=== PATIENT | male | born 1955 | race Caucasian/White ===

== ENCOUNTER → 2023-12-14 09:13 | Outpatient (REF) | payer MEDICARE, OTHER, SELFPAY | LOC: SDSPAT 09:13 | PROVIDERS: ATTENDING PHYSICIAN Surgery; FAMILY PHYSICIAN Family Medicine | DX: K40.90 Unilateral inguinal hernia, without obstruction or gangrene, not specified as recurrent (principal) | CPT/HCPCS: 36415; 93005 ==

== ENCOUNTER 2023-12-24 06:04 | Day surgery (SDC) | payer MEDICARE, OTHER, SELFPAY ==
[2023-12-14 09:29] VITALS: BMI 27.4
[2023-12-24] VITALS (7 sets, daily range): BP systolic 99–142; BP diastolic 72–85; BMI 27.4
[2023-12-24] MEDS: VANCOCIN 300 ML IV (06:40)
[2023-12-24] MEDS: TYLENOL 1000 MG PO (06:40)
[2023-12-24] MEDS: NORMOSOL-R 1000 IV (06:40)
[2023-12-24] MEDS: VANCOCIN 300 MG IV (06:40)
--- NOTE | 2023-12-24 07:35 | W.SUR.PREOP ---
Pre-Operative Surgical Note
-
I have examined this patient prior to the performance of the scheduled procedure.
The patient's condition is unchanged from the time of the current History and
Physical and the patient is able to undergo the scheduled procedure.
--- NOTE | 2023-12-24 09:19 | W.IMMPOSTOP ---
Surgical Immed Post Op Note
-
Primary Surgeon: Jeevan Shin MD
Assisting Surgeon: None
Pre-op Diagnosis: Right inguinal hernia
Post-op Diagnosis: Same
Procedure Performed: Robotic right inguinal hernia repair with mesh
Anesthesia Type: General
Specimen / Cultures: Right cord lipoma
Estimated Blood Loss: 3 cc
Complications: None
Operative Findings: No left inguinal hernia noted. Indirect right inguinal hernia identified with omentum. Cord lipoma resected. Floor reinforced with large right Bard 3D max mid weight mesh.
POST OP PLAN:
Will discharge home after voiding.
--- NOTE | 2023-12-24 09:21 | OR.RPT ---
Operative Report
Operative Report
Patient Name: Giacomo Medina
: 1955
Date of Operation: 12/24/2023
Preoperative Diagnosis: Reducible Inguinal hernia, right
Postoperative Diagnosis: Same
Procedure(s):
Robotic Inguinal Hernia Repair with mesh, right (JASKARAN approach)
Surgeon(s):
Dr. Shin
Social Scientist(s):
YUDITH Hamilton
Anesthesia: General
Estimated Blood Loss: 3 cc
Urine Output: None
Drains/Lines/Implants: Large 3D Max Bard mid weight mesh
Specimens: Right cord lipoma
Indication for surgery: The patient has a history of groin pain and noted on exam to have a right inguinal Hernia. He did also endorse left inguinal pain but no hernia noted on exam. Following review of therapeutic options they has elected to
undergo a minimally invasive repair.
Findings at the time of surgery:
No left inguinal hernia noted. Patient had a right indirect inguinal hernia containing some omentum that was reduced. No direct or femoral components. There was a cord lipoma that was resected.
Details of the operation:
The patient was brought to the Operating Room and placed in the supine position with the arms tucked. IV antibiotics were infused and Venodyne stockings placed. Following uneventful induction of general endotracheal anesthesia, an orogastric tube
were placed. The abdomen was prepped and draped in the usual sterile fashion. The abdomen was entered using a Veress technique which required 1 pass, pneumoperitoneum to 15 mmHg was obtained without difficulty. A 8mm trochar was passed through the
abdominal wall roughly 20 cm cephalad to the inguinal canal. We then confirmed that no inadvertent injury was made while passing the trocar or Veress needle. We then placed two additional 8 mm ports in the left upper and right upper quadrants. We
then docked the robot with a Prograsper in the left hand port and monopolar scissors in the right. There was no left inguinal hernia. An indirect right inguinal hernia containing omentum was readily apparent. This was carefully peeled off of the
peritoneum/hernia sac with electrocautery. We then began by creating a flap at the level of the ASIS laterally working our way medially to the medial umbilical fold. Staying onto the peritoneum we were able to circumferentially dissect around the
hernia sac and and peel it off of the underlying spermatic cord and testicular vessels, taking care to preserve them. Medially we identified the midline pubis as well as Neo's ligament and ensured to dissect 2 cm below the pubic rim over the
bladder. After exposure of the entire myopectineal orifice we identified and reduced: A medium sized indirect inguinal hernia, no direct inguinal hernia, no femoral hernia, and a medium cord lipoma, which was resected. In addition there was some
fat coming from the epigastric vessels that was plugging the hernia defect, this fat was also resected as it appeared that it could develop into a leak point
We then fixated a large 3D max mesh with a 2-0 Vicryl stitch at coopers medially and superior laterally. The flap was then closed with a running 2-0 barbed monocryl suture ensuring that the tail was cut flush with the medial fat pad so that no
barbs were exposed. During the closure of the flap a a suction cannula was inserted and 20 cc of quarter percent Marcaine was instilled. The area in the flap cavity was then evacuated of air confirming that the mesh was flush and there were no
folds. No rents were identified. The cord lipoma specimens were placed in 5 mm Endo Catch bag and removed. All needles and instruments were then removed and the robot was undocked. The abdomen was then desufflated, and pneumoperitoneum
evacuated. All skin sites were then closed with 4-0 Monocryl followed by Dermabond. Counts were correct and overall, the patient tolerated the procedure well and was taken to the Recovery Room postoperatively in stable condition.
I was the attending physician and performed the procedure with assistance of the PA above. The assistance of Hattie Chiang was required due to the complexity of the procedure. During the procedure Hattie assisted with retraction, resection, and closure
of the wound. I was present for all portions of the case excluding skin closure.
Jeevan Shin MD
== END 2023-12-24 10:50 | disposition home or self-care (01) ==
LOC: SDS 06:04
PROVIDERS: ATTENDING PHYSICIAN Surgery; FAMILY PHYSICIAN Family Medicine
DX: K40.90 Unilateral inguinal hernia, without obstruction or gangrene, not specified as recurrent (principal); D17.6 Benign lipomatous neoplasm of spermatic cord
CPT/HCPCS: 49650; 88304; C1781

== ENCOUNTER → 2024-01-06 10:05 | Outpatient (REF) | payer MEDICARE, OTHER, SELFPAY | LOC: HWRAD 10:05 | PROVIDERS: ATTENDING PHYSICIAN Student in an Organized Health Care Education/Training Program | DX: Z87.891 Personal history of nicotine dependence (principal); Z13.820 Encounter for screening for osteoporosis; M81.0 Age-related osteoporosis without current pathological fracture; M85.89 Other specified disorders of bone density and structure, multiple sites | CPT/HCPCS: 76770; 77080 ==

== ENCOUNTER → 2024-04-14 07:21 | Outpatient (REF) | payer MEDICARE, OTHER, SELFPAY | LOC: RAD 07:21 | PROVIDERS: ATTENDING PHYSICIAN Surgery; FAMILY PHYSICIAN Student in an Organized Health Care Education/Training Program | DX: R19.09 Other intra-abdominal and pelvic swelling, mass and lump (principal); Z98.890 Other specified postprocedural states; Z87.19 Personal history of other diseases of the digestive system | CPT/HCPCS: 72192 ==

== ENCOUNTER → 2024-05-24 11:55 | Outpatient (REF) | payer MEDICARE, OTHER, SELFPAY ==
[2024-05-24 12:35] VITALS: BP 140/85; BP_SYST 66
[2024-05-24 13:55] VITALS: BP 140/85
== END ==
LOC: RADI 11:55
PROVIDERS: ATTENDING PHYSICIAN Surgery; FAMILY PHYSICIAN Family Medicine
DX: L76.34 Postprocedural seroma of skin and subcutaneous tissue following other procedure (principal); Y83.8 Other surgical procedures as the cause of abnormal reaction of the patient, or of later complication, without mention of misadventure at the time of the procedure
CPT/HCPCS: 10160; 76942; 87015; 87070; 87205

== ENCOUNTER → 2024-06-01 06:39 | Outpatient (REF) | payer MEDICARE, OTHER, SELFPAY | LOC: PAVMRI 06:39 | PROVIDERS: ATTENDING PHYSICIAN Physician Assistant; FAMILY PHYSICIAN Student in an Organized Health Care Education/Training Program | DX: M54.16 Radiculopathy, lumbar region (principal) | CPT/HCPCS: 72148 ==

== ENCOUNTER → 2024-06-14 07:14 | Outpatient (REF) | payer MEDICARE, OTHER, SELFPAY ==
[2024-06-14 07:30] VITALS: BP 134/80; BP_SYST 78
== END ==
LOC: RADI 07:14
PROVIDERS: ATTENDING PHYSICIAN Surgery; FAMILY PHYSICIAN Student in an Organized Health Care Education/Training Program
DX: L76.34 Postprocedural seroma of skin and subcutaneous tissue following other procedure (principal); Y83.8 Other surgical procedures as the cause of abnormal reaction of the patient, or of later complication, without mention of misadventure at the time of the procedure
CPT/HCPCS: 10160; 76942

== ENCOUNTER → 2024-07-12 08:34 | Outpatient (REF) | payer MEDICARE, OTHER, SELFPAY ==
[2024-07-12 09:08] VITALS: BP 119/78; BP_SYST 59
[2024-07-12 10:05] VITALS: BP 113/65; BP_SYST 53
[2024-07-12 10:10] VITALS: BP 107/69
[2024-07-12 10:13] VITALS: BP 107/69
[2024-07-12 10:16] VITALS: BP 104/69
[2024-07-12 10:30] VITALS: BP 110/70; BP_SYST 58
== END ==
LOC: RADI 08:34
PROVIDERS: ATTENDING PHYSICIAN Internal Medicine Critical Care Medicine
DX: L76.34 Postprocedural seroma of skin and subcutaneous tissue following other procedure (principal); Y83.8 Other surgical procedures as the cause of abnormal reaction of the patient, or of later complication, without mention of misadventure at the time of the procedure
CPT/HCPCS: 10030; 87015; 87070; 87205; 99152; 99153; C1729; C1769

== ENCOUNTER → 2024-08-20 08:07 | Outpatient (REF) | payer MEDICARE, OTHER, SELFPAY | LOC: RAD 08:07 | PROVIDERS: ATTENDING PHYSICIAN Surgery; FAMILY PHYSICIAN Student in an Organized Health Care Education/Training Program | DX: R19.09 Other intra-abdominal and pelvic swelling, mass and lump (principal) | CPT/HCPCS: 72192 ==

== ENCOUNTER 2024-10-06 06:10 | Day surgery (SDC) | payer MEDICARE, OTHER, SELFPAY ==
[2024-10-06 06:49] VITALS: BMI 26.5
[2024-10-06 06:50] VITALS: BP 139/81
[2024-10-06] MEDS: NORMOSOL-R/PLASMALYTE-A 1000 IV (07:01)
[2024-10-06] MEDS: TYLENOL 1000 MG PO (07:01)
--- NOTE | 2024-10-06 07:21 | HP.FOC2 ---
Focused History & Physical
Chief Complaint
HPI:
Chief Complaint: Right groin seroma
HPI / Indication for Planned Procedure:
This is a 68-year-old male with a history of a robotic right inguinal hernia repair with mesh for developing symptomatic right inguinal seroma failed conservative management as well as IR drain placement, here for operative excision of his right
groin seroma
Relevant Past Medical History: Negative
Relevant Social History: Negative
Relevant Family History: Negative
Relevant Past Surgical History: Positive for (Robotic right inguinal hernia repair with mesh)
Review of Systems
Review of Pertinent Systems: All Systems Negative
Medication
See Medication form for detailed medications: Yes
Medication List (including Herbals & OTC):
lisinopril 5 mg tablet 5 mg PO DAILY 12/18/23
Medications Reviewed: Yes
Allergies and Reactions
Patient has Allergies: Yes
Noted Allergies and Reactions:
Allergy/AdvReac Type Severity Reaction Status Date / Time
Cephalosporins Allergy Unknown Verified 10/06/24 06:48
Iodinated Contrast Media Allergy Anaphylaxis Verified 10/06/24 06:48
penicillin G Allergy Unknown Verified 10/06/24 06:48
Penicillins Allergy Unknown Verified 10/06/24 06:48
Pertinent Physical Exam
All Other Systems: Negative
Head/Neck: Normal
Diagnosis / Assessment
This is a 68-year-old male with a history of a robotic right inguinal hernia repair with mesh for developing symptomatic right inguinal seroma failed conservative management as well as IR drain placement, here for operative excision of his right
groin seroma
Plan / Procedure
Open right groin excision of seroma
Anesthesia/Sedation to be done by Anesthesia Provider: Yes
[2024-10-06 08:25] VITALS: BP 111/61
[2024-10-06 08:30] VITALS: BP 114/66
--- NOTE | 2024-10-06 08:30 | W.IMMPOSTOP ---
Surgical Immed Post Op Note
-
Primary Surgeon: Jeevan Shin MD
Assisting Surgeon: None
Pre-op Diagnosis: Right groin seroma
Post-op Diagnosis: Same
Procedure Performed: Excision of right groin seroma and cord lipoma
Anesthesia Type: General
Specimen / Cultures:
1. Right groin seroma
2. Right cord lipoma
Estimated Blood Loss: 1 cc
Complications: None
Operative Findings: A roughly 4 cm round encapsulated seroma was identified and dissected clean off of the surrounding tissues without violation of the capsule or injury to the puente structures of the spermatic cord. There was also a somewhat bulky
fatty tissue around the testicular vessels concerning for possible cord lipoma which was resected up to the level of the superficial ring. The external oblique was not opened/violated. The wound was closed with multiple layers of 3-0 Vicryl
followed by a running 4-0 Monocryl subcuticular, followed by Dermabond.
--- NOTE | 2024-10-06 08:33 | OR.RPT ---
Operative Report
Operative Report
Patient Name: Giacomo Medina
: 1955
Date of Operation: 10/06/2024
Preoperative Diagnosis: Right groin seroma
Postoperative Diagnosis: Same
Procedure(s):
Open excision of a right groin seroma and cord lipoma
Surgeon(s):
Dr. Shin
Sleeve Maker(s):
YUDITH Hamilton
Anesthesia: Local/MAC
Estimated Blood Loss: 1 cc
Urine Output: None
Drains/Lines/Implants: None
Specimens:
1. Right groin seroma
2. Right groin cord lipoma
Indication for surgery: The patient has a history of right inguinal hernia status post robotic repair last year with subsequent development of a symptomatic right groin seroma that failed conservative management as well as IR drainage.Following
review of therapeutic options they has elected to undergo an open surgical excision of his right groin seroma.
Operative Findings: A roughly 4 cm round encapsulated seroma was identified and dissected clean off of the surrounding tissues without violation of the capsule or injury to the puente structures of the spermatic cord. There was also a somewhat bulky
fatty tissue around the testicular vessels concerning for possible cord lipoma which was resected up to the level of the superficial ring. The external oblique was not opened/violated. The wound was closed with multiple layers of 3-0 Vicryl
followed by a running 4-0 Monocryl subcuticular, followed by Dermabond.
Details of the operation:
After induction of general anesthesia, the patient was clipped, prepped and draped in the supine position. A team timeout was performed confirming administration of DVT prophylaxis, IV antibiotics and SCDs. The ASIS and pubic tubercle were marked
and an incision was chosen along the course of a skin line. The skin was anesthestized with Lidocaine. A standard right groin incision was made through the skin line and dissection carried down through subcutaneous tissue and Doc's fascia. The
superficial epigastric vein was identified and ligated. A Small Manan wound retractor was used to provide exposure. The external oblique fibers were identified and followed to the superficial ring. Here we were able to dissect around the cord
structures circumferentially. The right groin seroma was readily identified and after dividing some of the cremaster fibers that capsule was carefully dissected off of the surrounding structures without violating. A roughly 4 cm round encapsulated
seroma was passed off the field as specimen #1. We also noted some bulky fatty tissue around the testicular vessels unclear if this was a true cord lipoma as none was identified on his preoperative imaging we did not open up the external oblique,
but we elected to debulk this tissue while still preserving the blood supply to the testicle. This was passed off as specimen #2. There was no injury to the underlying vessels to the testicle, pampiniform plexus, spermatic cord (though the patient
already had a vasectomy) and no nerves were identified or cut during our dissection. After confirming hemostasis her wound was closed in multiple layers with running 3-0 Vicryl sutures. The skin was closed with a running subcuticular 4-0 Monocryl
followed by Dermabond. The patient returned to the Recovery Room in stable condition. Sponge and instrument counts were correct.
I was the attending physician and performed the procedure with assistance of the PA above. The assistance of YUDITH Hamilton was required due to the complexity of the procedure. During the procedure Hattie assisted with retraction, resection, and
closure of the wound. I was present for all portions of the case, excluding skin closure.
Jeevan Shin MD
[2024-10-06 08:45] VITALS: BP 117/70
[2024-10-06 09:00] VITALS: BP 113/71
== END 2024-10-06 09:25 | disposition home or self-care (01) ==
LOC: SDS 06:10
PROVIDERS: ATTENDING PHYSICIAN Surgery
DX: R19.09 Other intra-abdominal and pelvic swelling, mass and lump (principal); D17.5 Benign lipomatous neoplasm of intra-abdominal organs
CPT/HCPCS: 10140; 88304

== ENCOUNTER → 2024-10-12 08:53 | Outpatient (REF) | payer MEDICARE, OTHER, SELFPAY | LOC: HWRAD 08:53 | PROVIDERS: ATTENDING PHYSICIAN Student in an Organized Health Care Education/Training Program | DX: E78.2 Mixed hyperlipidemia (principal); I10 Essential (primary) hypertension; E78.5 Hyperlipidemia, unspecified | CPT/HCPCS: 75571 ==

== ENCOUNTER → 2024-10-18 08:55 | Outpatient (REF) | payer MEDICARE, OTHER, SELFPAY | LOC: HWRCS 08:55 | PROVIDERS: ATTENDING PHYSICIAN Student in an Organized Health Care Education/Training Program | DX: E78.2 Mixed hyperlipidemia (principal); Z00.00 Encounter for general adult medical examination without abnormal findings; I10 Essential (primary) hypertension; E78.5 Hyperlipidemia, unspecified; R93.89 Abnormal findings on diagnostic imaging of other specified body structures; G89.29 Other chronic pain; R01.1 Cardiac murmur, unspecified; M54.9 Dorsalgia, unspecified | CPT/HCPCS: 93306 ==

== ENCOUNTER → 2024-11-02 06:38 | Outpatient (REF) | payer MEDICARE, OTHER, SELFPAY | LOC: EMG 06:38 | PROVIDERS: ATTENDING PHYSICIAN Physician Assistant; FAMILY PHYSICIAN Student in an Organized Health Care Education/Training Program | DX: I71.9 Aortic aneurysm of unspecified site, without rupture (principal); M54.16 Radiculopathy, lumbar region; M51.26 Other intervertebral disc displacement, lumbar region; R20.2 Paresthesia of skin; R20.0 Anesthesia of skin | CPT/HCPCS: 93978; 95886; 95911 ==

== ENCOUNTER → 2025-01-16 10:44 | Outpatient (REF) | payer MEDICARE, OTHER, SELFPAY | LOC: HWRAD 10:44 | PROVIDERS: ATTENDING PHYSICIAN Student in an Organized Health Care Education/Training Program | DX: R93.89 Abnormal findings on diagnostic imaging of other specified body structures (principal); R91.1 Solitary pulmonary nodule | CPT/HCPCS: 71250 ==